=== PATIENT | female | born 1990 | race Asian ===

== ENCOUNTER 2017-08-31 15:57 | Emergency (ER) | payer OTHER ==
--- NOTE | 2017-08-31 16:10 | EDPHY ---
H & P Time Seen by Provider: 08/31/17 16:09 HPI/ROS: CHIEF COMPLAINT: Vaginal bleeding, Positive home test HISTORY OF PRESENT ILLNESS: The patient is a 27-year-old female presenting with vaginal bleeding and abdominal pain. She took a home test 1 week ago that was positive. Onset of nausea over the past week with no emesis. Last night she had vaginal spotting with moderate lower abdominal cramping. The abd cramping was transient last mario, with no recurrent cramping. She continued to have spotting today and developed a back ache. The back ache is dull and constant. No abdominal pain today. Her LMP was 07/20/17. No vag discharge or UTI sx. REVIEW OF SYSTEMS: A comprehensive 10 point review of systems is otherwise negative aside from elements mentioned in the history of present illness. Past Medical/Surgical History: Denies. Social History: Working in [employer]. Smoking Status: Never smoked Physical Exam: General Appearance: Alert, pleasant Eyes: Pupils equal and round, no conjunctival pallor ENT, Mouth: Mucous membranes moist Neck: Normal inspection Respiratory: Lungs are clear to auscultation Cardiovascular: Regular rate and rhythm Gastrointestinal: Abdomen is soft and non-tender Neurological: A&O, nonfocal, normal gait Skin: Warm and dry, no rash Extremities: normal inspection Psychiatric: Mood and affect normal Constitutional: Initial Vital Signs Temperature (C) 36.4 C 08/31/17 15:59 Heart Rate 85 08/31/17 15:59 Respiratory Rate 18 08/31/17 15:59 Blood Pressure 136/66 H 08/31/17 15:59 O2 Sat (%) 98 08/31/17 15:59 O2 Delivery Mode Room Air Allergies/Adverse Reactions: Penicillins Allergy (Verified 08/31/17 15:59) Home Medications: Medication Instructions Recorded NK [No Known Home Meds] 08/31/17 Medical Decision Making - Diagnostics Imaging Results: Pelvic sono: IUP, 6wks 1day Imaging: Discussed imaging studies w/ call or contact centre team leader Radiologist ED Course/Re-evaluation: Patient with positive home test (1 week ago) presents with acute vaginal spotting and abdominal cramping. Concern for threatened miscarriage vs ectopic . urine preg test positive. I ordered pelvic ultrasound. CBC and BHCG quantitative tests are pending. US shows IUP 6 weeks 1 day. Blood type O+. I discussed findings with the patient. She was given a referral to the production team manager Executive Director [employer]. I feel she is safe for discharge home at this time. She will follow up with an Executive Director [employer]. Warning signs discussed. Differential Diagnosis: includes though not limited to ectopic , severe anemia/hemorrhage, dysfunctional uterine bleeding, miscarriage - Data Points Laboratory Results: Laboratory Results 08/31/17 16:32 Departure - Departure Disposition: Home, Routine, Self-Care Clinical Impression: Threatened miscarriage Condition: Good Instructions: Threatened Miscarriage (ED) Additional Instructions: You have been referred to the production team manager Executive Director [employer]. Please call to arrange a follow up appointment. Return to the Emergency Department with significant vaginal bleeding, abdominal cramping, or other concerns. Referrals: Haven Vale MD [Medical Doctor] - As per Instructions (call or contact centre team leader Executive Director [employer] ) Report Scribed for: Nubia Browning Report Scribed by: Bharati Gibson Date of Report: 08/31/17 Time of Report: 16:10 Physician Review and Approval Statement: 08/31/17 16:10 Portions of this note were transcribed by a medical technologist prn. I personally performed the history, physical exam, and medical decision-making; and confirmed the accuracy of the information in the transcribed note.
--- NOTE | 2017-08-31 16:10 | EDPHY ---
H & P Time Seen by Provider: 08/31/17 16:09 HPI/ROS: CHIEF COMPLAINT: Vaginal bleeding, Positive home test HISTORY OF PRESENT ILLNESS: The patient is a 27-year-old female presenting with vaginal bleeding and abdominal pain. She took a home test 1 week ago that was positive. Onset of nausea over the past week with no emesis. Last night she had vaginal spotting with moderate lower abdominal cramping. The abd cramping was transient last mario, with no recurrent cramping. She continued to have spotting today and developed a back ache. The back ache is dull and constant. No abdominal pain today. Her LMP was 07/20/17. No vag discharge or UTI sx. REVIEW OF SYSTEMS: A comprehensive 10 point review of systems is otherwise negative aside from elements mentioned in the history of present illness. Past Medical/Surgical History: Denies. Social History: Working in [employer]. Smoking Status: Never smoked Physical Exam: General Appearance: Alert, pleasant Eyes: Pupils equal and round, no conjunctival pallor ENT, Mouth: Mucous membranes moist Neck: Normal inspection Respiratory: Lungs are clear to auscultation Cardiovascular: Regular rate and rhythm Gastrointestinal: Abdomen is soft and non-tender Neurological: A&O, nonfocal, normal gait Skin: Warm and dry, no rash Extremities: normal inspection Psychiatric: Mood and affect normal Constitutional: Initial Vital Signs Temperature (C) 36.4 C 08/31/17 15:59 Heart Rate 85 08/31/17 15:59 Respiratory Rate 18 08/31/17 15:59 Blood Pressure 136/66 H 08/31/17 15:59 O2 Sat (%) 98 08/31/17 15:59 O2 Delivery Mode Room Air Allergies/Adverse Reactions: Penicillins Allergy (Verified 08/31/17 15:59) Home Medications: Medication Instructions Recorded NK [No Known Home Meds] 08/31/17 Medical Decision Making - Diagnostics Imaging Results: Pelvic sono: IUP, 6wks 1day Imaging: Discussed imaging studies w/ on call Radiologist ED Course/Re-evaluation: Patient with positive home test (1 week ago) presents with acute vaginal spotting and abdominal cramping. Concern for threatened miscarriage vs ectopic . urine preg test positive. I ordered pelvic ultrasound. CBC and BHCG quantitative tests are pending. US shows IUP 6 weeks 1 day. Blood type O+. I discussed findings with the patient. She was given a referral to the percussion welding machine operator Rn Dermatology. I feel she is safe for discharge home at this time. She will follow up with an Rn Dermatology. Warning signs discussed. Differential Diagnosis: includes though not limited to ectopic , severe anemia/hemorrhage, dysfunctional uterine bleeding, miscarriage - Data Points Laboratory Results: Laboratory Results 08/31/17 16:32 Departure - Departure Disposition: Home, Routine, Self-Care Clinical Impression: Threatened miscarriage Condition: Good Instructions: Threatened Miscarriage (ED) Additional Instructions: You have been referred to the percussion welding machine operator Rn Dermatology. Please call to arrange a follow up appointment. Return to the Emergency Department with significant vaginal bleeding, abdominal cramping, or other concerns. Referrals: Haven Vale MD [Medical Doctor] - As per Instructions (on call Rn Dermatology ) Report Scribed for: Nubia Browning Report Scribed by: Bharati Gibson Date of Report: 08/31/17 Time of Report: 16:10 Physician Review and Approval Statement: 08/31/17 16:10 Portions of this note were transcribed by a medical sales. I personally performed the history, physical exam, and medical decision-making; and confirmed the accuracy of the information in the transcribed note.
--- NOTE | 2017-08-31 16:10 | EDPHY ---
H & P Time Seen by Provider: 08/31/17 16:09 HPI/ROS: CHIEF COMPLAINT: Vaginal bleeding, Positive home test HISTORY OF PRESENT ILLNESS: The patient is a 27-year-old female presenting with vaginal bleeding and abdominal pain. She took a home test 1 week ago that was positive. Onset of nausea over the past week with no emesis. Last night she had vaginal spotting with moderate lower abdominal cramping. The abd cramping was transient last mario, with no recurrent cramping. She continued to have spotting today and developed a back ache. The back ache is dull and constant. No abdominal pain today. Her LMP was 07/20/17. No vag discharge or UTI sx. REVIEW OF SYSTEMS: A comprehensive 10 point review of systems is otherwise negative aside from elements mentioned in the history of present illness. Past Medical/Surgical History: Denies. Social History: Working in [employer]. Smoking Status: Never smoked Physical Exam: General Appearance: Alert, pleasant Eyes: Pupils equal and round, no conjunctival pallor ENT, Mouth: Mucous membranes moist Neck: Normal inspection Respiratory: Lungs are clear to auscultation Cardiovascular: Regular rate and rhythm Gastrointestinal: Abdomen is soft and non-tender Neurological: A&O, nonfocal, normal gait Skin: Warm and dry, no rash Extremities: normal inspection Psychiatric: Mood and affect normal Constitutional: Initial Vital Signs Temperature (C) 36.4 C 08/31/17 15:59 Heart Rate 85 08/31/17 15:59 Respiratory Rate 18 08/31/17 15:59 Blood Pressure 136/66 H 08/31/17 15:59 O2 Sat (%) 98 08/31/17 15:59 O2 Delivery Mode Room Air Allergies/Adverse Reactions: Penicillins Allergy (Verified 08/31/17 15:59) Home Medications: Medication Instructions Recorded NK [No Known Home Meds] 08/31/17 Medical Decision Making - Diagnostics Imaging Results: Pelvic sono: IUP, 6wks 1day Imaging: Discussed imaging studies w/ fisher scallop Radiologist ED Course/Re-evaluation: Patient with positive home test (1 week ago) presents with acute vaginal spotting and abdominal cramping. Concern for threatened miscarriage vs ectopic . urine preg test positive. I ordered pelvic ultrasound. CBC and BHCG quantitative tests are pending. US shows IUP 6 weeks 1 day. Blood type O+. I discussed findings with the patient. She was given a referral to the materials and corrosion engineer [employer]. I feel she is safe for discharge home at this time. She will follow up with an [employer]. Warning signs discussed. Differential Diagnosis: includes though not limited to ectopic , severe anemia/hemorrhage, dysfunctional uterine bleeding, miscarriage - Data Points Laboratory Results: Laboratory Results 08/31/17 16:32 Departure - Departure Disposition: Home, Routine, Self-Care Clinical Impression: Threatened miscarriage Condition: Good Instructions: Threatened Miscarriage (ED) Additional Instructions: You have been referred to the materials and corrosion engineer [employer]. Please call to arrange a follow up appointment. Return to the Emergency Department with significant vaginal bleeding, abdominal cramping, or other concerns. Referrals: Haven Vale MD [Medical Doctor] - As per Instructions (fisher scallop [employer] ) Report Scribed for: Nubia Browning Report Scribed by: Bharati Gibson Date of Report: 08/31/17 Time of Report: 16:10 Physician Review and Approval Statement: 08/31/17 16:10 Portions of this note were transcribed by a certified medical coder. I personally performed the history, physical exam, and medical decision-making; and confirmed the accuracy of the information in the transcribed note.
[2017-08-31 16:46] LABS: PLATELET COUNT 213 10^3/uL (150-400)
[2017-08-31 18:20] VITALS: BP 106/64; PULSE 80; RESP 16; TEMP 97.9; O2SAT 97
== END 2017-08-31 18:20 | disposition home or self-care (01) ==
DX: O20.0 Threatened abortion (principal); Z3A.01 Less than 8 weeks gestation of pregnancy

== ENCOUNTER → 2017-10-17 | Outpatient (CLI) | payer OTHER | LOC: FIMAGING 14:03 | PROVIDERS: ATTEND Obstetrics & Gynecology | DX: Z34.01 Encounter for supervision of normal first pregnancy, first trimester (principal); Z3A.13 13 weeks gestation of pregnancy ==

== ENCOUNTER → 2017-12-02 | Outpatient (CLI) | payer OTHER | LOC: FIMAGING 08:01 | PROVIDERS: ATTEND Obstetrics & Gynecology | DX: O36.62X0 Maternal care for excessive fetal growth, second trimester, not applicable or unspecified (principal); Z3A.19 19 weeks gestation of pregnancy ==

== ENCOUNTER → 2018-02-17 | Outpatient (CLI) | payer BC | LOC: FIMAGING 08:54 | PROVIDERS: ATTEND Obstetrics & Gynecology | DX: O36.63X0 Maternal care for excessive fetal growth, third trimester, not applicable or unspecified (principal); Z3A.30 30 weeks gestation of pregnancy ==

== ENCOUNTER → 2018-04-03 | Outpatient (CLI) | payer BC | LOC: FIMAGING 12:52 | PROVIDERS: ATTEND Obstetrics & Gynecology | DX: Z34.03 Encounter for supervision of normal first pregnancy, third trimester (principal); Z3A.36 36 weeks gestation of pregnancy ==